=== PATIENT | female | born 1950 | race African-American/Black ===

== ENCOUNTER → 2016-06-26 | Outpatient (CLI) | payer MEDICARE ==
[2015-03-19 13:36] VITALS: BP 135/80
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
== END | disposition home or self-care (01) ==
LOC: KCIC MRI 15:13
PROVIDERS: ATTEND Nurse Practitioner Family
DX: R53.1 Weakness (principal); R20.2 Paresthesia of skin; G25.2 Other specified forms of tremor
CPT/HCPCS: 72141

== ENCOUNTER → 2016-09-22 | Outpatient (CLI) | payer MEDICARE ==
[2015-03-19 13:36] VITALS: BP 135/80
--- NOTE | 2016-09-22 16:37 | KCIC ---
PROCEDURE Bilateral digital mammogram with CAD HISTORY Routine screening TECHNIQUE Bilateral digital routine views were obtained with computer-aided detection. COMPARISON July 20, 2014 FINDINGS Density A: Predominantly fatty tissue. There is no suspicious mass, calcifications or areas of architectural distortion. IMPRESSION No suspicious findings. [Recommend routine screening mammography in one year.] This study was interpreted with the benefit of Computerized Aided Detection (CAD). Mammography is not 100% sensitive in detecting breast cancer. Therefore, a self breast exam and a clinical breast exam are very important. A negative mammogram does not negate a clinically suspicious finding and should not result in a delay in biopsying a clinically suspicious abnormality. BI-RADS category 1: Negative. Electronically signed by: Joaquín Altman MD (Sep 22, 2016 16:35:56)
== END | disposition home or self-care (01) ==
LOC: KCIC MAMMO 14:54
PROVIDERS: ATTEND Family Medicine
DX: Z12.31 Encounter for screening mammogram for malignant neoplasm of breast (principal)
CPT/HCPCS: G0202; 77067

== ENCOUNTER → 2016-12-24 | Outpatient (CLI) | payer MEDICARE ==
[2015-03-19 13:36] VITALS: BP 135/80
--- NOTE | 2016-12-24 10:46 | KCIC ---
MRI Lumbar Spine without contrast History: Low back pain, bilateral leg weakness Technique: Multiplanar, multi sequential noncontrast MR imaging was performed of the lumbar spine. Contrast: None Comparison: None available at this time Findings: Lumbar vertebral body stature is maintained. There is grade 1 anterior spondylolisthesis at L4-5, negligible anterior spondylolisthesis L3-4. There is mild/moderate degenerative disc disease at L4-5, mild disc desiccation L2-3, L3-4, L5-S1. Conus terminates at L1-2. There is nonspecific edema of the posterior subcutaneous fat of the lower back. There are some T2 hyperintense foci of the visualized kidneys which are not fully evaluated. L2-L3: There is moderate to severe narrowing of the right neural foramen from posteriorly by facet degenerative change. There is minimal narrowing of the left neural foramen. There is negligible disc osteophyte complex greater in the inferior left neural foramen. There is minimal narrowing of the far left lateral recess. L3-L4: There is moderate buckling of the ligamentum flavum and mild facet hypertrophic change. There is minimal disc osteophyte complex greater in the inferior left neural foramen. There is [id number] narrowing of the far left lateral recess. There is mild left and [id number] right neural foramina compromise. L4-L5: There is moderate facet hypertrophic change and mild to moderate buckling of the ligamentum flavum. There is partial uncovering of the posterior aspect of the disc due to spondylolisthesis with superimposed minimal bulge somewhat greater in the inferior left neural foramen and proximal left extraforaminal region. There is severe spinal stenosis with limited preserved central subarachnoid space, lateral recess stenosis bilaterally. There is moderate narrowing of the left neural foramen with bulge near the undersurface exiting left L4 nerve root without displacement. There is mild narrowing of the right neural foramen. L5-S1: There is moderate to severe facet degenerative change greater on the left. There is mild buckling of the ligamentum flavum. There is moderate to severe narrowing of the right lateral recess at the location of the descending right S1 nerve root mostly from ligamentum flavum, mild overall narrowing of. The far left lateral recess. There is moderate to severe narrowing of the left neural foramen with contact exiting left L5 nerve root, narrowing by facet hypertrophic change in combination with ligamentum flavum as well as minimal disc osteophyte complex. There is mild narrowing of the right neural foramen. There are likely partially conjoined nerve root sleeves of right S1 and L5 nerve roots. Impression: 1. There is severe spinal stenosis L4-5, other lateral recess stenosis as stated greatest on the right at L5-S1 and to lesser degree on the left at L3-4. 2. There is mild to moderate degenerative disc disease L4-5, minimally at other levels. There is grade 1 anterior spondylolisthesis at L4-5, negligible anterior spondylolisthesis at L3-4. There is multilevel lumbar facet degenerative change. 3. There is neural foramina compromise as stated greatest on the left at L5-S1, to lesser degree on the left at L4-5 and on the right at L3-4. Electronically signed by: Cortez Grant MD (12/24/2016 10:43 AM) [id number]
== END | disposition home or self-care (01) ==
LOC: KCIC MRI 09:28
PROVIDERS: ATTEND Nurse Practitioner Family
DX: M48.06 Spinal stenosis, lumbar region (principal); M51.36 Other intervertebral disc degeneration, lumbar region; M43.16 Spondylolisthesis, lumbar region; R53.1 Weakness
CPT/HCPCS: 72148

== ENCOUNTER → 2017-02-17 | Outpatient (CLI) | payer MEDICARE ==
[2015-03-19 13:36] VITALS: BP 135/80
--- NOTE | 2017-02-17 16:46 | KCIC ---
Examination: 3 lateral views of the lumbar spine HISTORY: History of spondylolisthesis COMPARISON: MRI from 12/24/2016 FINDINGS: The vertebral body heights are maintained. Moderate intervertebral disc height loss identified throughout the lumbar spine. There is mild anterolisthesis of L4 on L5 measuring 6.5 mm on the extension view which slightly increases on the flexion view measuring 8.5 mm. Lucency identified in the laura region of the L4 likely spondylolysis. There is mild 4 mm retrolisthesis of L3 on L4. Moderate multilevel facet degenerative changes throughout the lumbar spine. IMPRESSION: Mild anterolisthesis of L4 on L5 which slightly increases on flexion views in comparison with extension views. L4 spondylolysis. Electronically signed by: Noah Santillan MD (02/17/2017 4:42 PM) [id number]
== END | disposition home or self-care (01) ==
LOC: KCIC 15:50
PROVIDERS: ATTEND Neurological Surgery
DX: M43.10 Spondylolisthesis, site unspecified (principal)
CPT/HCPCS: 72100

== ENCOUNTER → 2017-04-03 | Outpatient (CLI) | payer MEDICARE ==
[2015-03-19 13:36] VITALS: BP 135/80
[~2017-04-03] MED LIST: ALBU2.5V14 NEB; ALLO100T PO; ASPI325T8 PO; CHRO1TAB4 PO; CITA20TA5 PO; CRESTOR20 MG PO; FERR-26 PO; FLUT100D IH; FURO-68 PO; GABA-585 PO; GARL100T PO; GLUC1TAB44 PO; HYDR-2766 PO; IOHEXOL 180 MG/ML 10 ML VIAL. ONE; IPRA4AER IH; ISOS30TA4 PO; LACT1CAP2 PO; LEVO50TA5 PO; MAGN400C PO; MONT10TA9 PO; MULT1TAB52 PO; NAPR220C4 PO; OLME20TA19 PO; OMEG-131 PO; OMEP20CA9 PO; OXYB10TA PO; POTA20TA82 PO; PRED2.5T PO; PROAIR HFA8.5 GM INH; TURM538C PO; UBID30CA9 PO; methylPREDNISolone ACETATE 40 MG/ML VIAL. ONE; methylPREDNISolone ACETATE 80 MG/ML VIAL. ONE
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
== END | disposition home or self-care (01) ==
LOC: PNCL 10:24
PROVIDERS: ATTEND Anesthesiology
DX: M51.16 Intervertebral disc disorders with radiculopathy, lumbar region (principal); M48.061 Spinal stenosis, lumbar region without neurogenic claudication; M19.91 Primary osteoarthritis, unspecified site; I10 Essential (primary) hypertension; J44.9 Chronic obstructive pulmonary disease, unspecified
CPT/HCPCS: 62323; J1030; J1040

== ENCOUNTER → 2017-04-23 | Outpatient (CLI) | payer MEDICARE ==
[2015-03-19 13:36] VITALS: BP 135/80
[~2017-04-23] MED LIST changes: +DILT120C80 PO
--- NOTE | 2017-04-23 17:52 | PAIN ---
DATE OF SERVICE: 04/23/2017 DIAGNOSES: Lumbar radiculopathy with lumbar spinal stenosis, lumbar degenerative disk disease. HISTORY OF PRESENT ILLNESS: The patient is a 66-year-old female who returns for followup status post lumbar epidural steroid injection x 1. The patient reports only minimal decrease in pain after the first injection, still pain across the low back and the bilateral lower extremities, mostly in the lateral and anterior thighs, posterior thighs, gluteus into the medial lower legs bilaterally, slightly more on the right than the left, but present bilaterally; worse with walking and standing, change in positions. It is sharp, tight, shooting, tingling, radiating, becoming more unbearable, more severe, especially walking without a walker. She has been doing this occasionally. She feels like that she is walking a little bit better but most times has a walker with her and she has with her today as well. The patient reports her pain is a 9 on a scale of 10 at its worst, its least, its average and is a 9 today. The patient reports she has not been awakening from sleep at night. She feels much better with sitting down or lying down, is sleeping 7 hours a night on most nights without difficulty. The patient reports no new motor or sensory deficits, no new bowel or bladder incontinence or other complaints. PHYSICAL EXAMINATION: VITAL SIGNS: Today, the patient's blood pressure is 140/78, pulse is 77, respirations 20, temperature is 98.0 degrees Fahrenheit, weight is 247 pounds. GENERAL: The patient is awake, alert, oriented, appropriate, very pleasant demeanor. HEENT: Head shows normocephalic, atraumatic. Extraocular movements are intact and symmetrical. Oral cavity shows mucous membranes moist and pink. Dentition is intact. NECK: Shows anterior throat supple without palpable lymphadenopathy noted. Swallow reflex is symmetrical. Neck shows full rotational motion of cervical spine, both laterally as well as extension and flexion. CHEST: Shows normal on inspection. Breath sounds clear to auscultation bilaterally. HEART: Shows S1, S2 clear. No murmurs auscultated. ABDOMEN: Obese, soft, nontender, nondistended. No palpable organomegaly is noted. No rebound or guarding demonstrated. BACK: Shows spine grossly midline. Slight exaggeration of thoracic kyphosis, some mild flattening of lumbar lordotic curvature. No previous bruises, lesions, rashes or scars noted. Lumbar paraspinous muscle shows symmetrical on inspection with palpation, shows moderate tenderness bilaterally, mostly in the low lumbar distribution and only diffusely, but to a moderate extent without radiation. No tenderness over the spinous processes, sacrum or sacroiliac regions. The patient shows good rotation and motion of lumbar spine, both laterally at 10 degrees as well as extension 10 degrees, forward flexion 45 degrees without significant pain reported. EXTREMITIES: Lower extremities showed deep tendon reflexes 1+ in the patellar and tendo calcaneus tendons and equal. Motor exam is strong with approximately 4 on a scale of 5, but equal dorsiflexion, extension, quadriceps and hamstring flexion bilaterally. Peripheral pulses are 1+ posterior tibia. No peripheral edema is noted. Options were discussed with the patient and the patient's old chart was reviewed as her current medication regimen and updated. Current review of systems is updated today as well and we will proceed with a second in the series of lumbar epidural steroid injection with fluoroscopic guidance. Risks were again discussed including, but not limited to bleeding, infection, possibility of epidural hematoma and subsequent neurologic compromise, dural puncture, headaches, spinal cord and/or nerve damage, side effects of steroid medication and poor results regarding pain control. The patient understands and wishes to proceed. The patient will return to clinic in approximately 2 weeks for followup, was counseled on return appointment, activity level and side effects to be aware of. DIAGNOSIS: Lumbar radiculopathy with lumbar spinal stenosis, lumbar degenerative disk disease. PROCEDURE: Lumbar epidural steroid injection in translaminar approach at L4-L5 level using C-arm fluoroscopic guidance under sterile prep and drape using local anesthetic. MEDICATIONS INJECTED: A total of 120 mg Depo-Medrol plus 10 mL of preservative-free normal saline and 2 mL of Isovue for contrast. CONDITION AT DISCHARGE: Stable. The patient tolerated procedure well, had no complications. JOSE BERMUDEZ MD DR: EMILY/sam JOB#: [id number] / [id number]
== END ==
LOC: PNCL 11:03
PROVIDERS: ATTEND Anesthesiology
DX: M51.16 Intervertebral disc disorders with radiculopathy, lumbar region (principal)
CPT/HCPCS: 62323; J1030; J1040